=== PATIENT | male | born 1950 | race Caucasian/White ===

== ENCOUNTER 2024-04-03 12:15 | Day surgery (SDC) | payer MEDICARE, OTHER, SELFPAY ==
--- OUTSIDE RECORDS SUMMARY | 2024-04-03 12:18 | XMS_ITS | Continuity of Care Document ---
Author Organization [facility] Address [address] [place] [address]- Care Team Providers Care Valuation Manager Name Role Phone Jesusita MAGUIRE, Ralf Stauffer Primary Care Physician Encounter [facility] [place] Date(s): 11/26/23 - 12/03/23 [facility] [address] [place] [address], [place] [address] Attending Physician: Jeromy Valdes MD Referring Physician: Wil Alicea MD Allergies, Adverse Reactions, Alerts No Known Allergies Immunizations Given and Recorded Vaccine Date Status Refusal Reason SARS-CoV-2 (COVID-19) mRNA-1273 vaccine 05/21/21 R ecorded SARS-CoV-2 (COVID-19) mRNA-1273 vaccine 09/15/20 R ecorded SARS-CoV-2 (COVID-19) mRNA-1273 vaccine 08/18/20 R ecorded pneumococcal 23-valent vaccine 04/02/21 Recorded influenza virus vaccine, inactivated 04/02/21 Nuno rded Medications aspirin 81 mg oral delayed release tablet 81 mg, 1, tablet, By Mouth, Daily, Refills 0, Maintenance, 12/30/20 10:10:00 EDT, Partial fill uponpatient request if the prescription is for a schedule II opioid drug. Start Date: 12/30/20 Status: Ordered atorvastatin 20 mg oral tablet 1 tablet, By Mouth, Daily, # 90 tablet, 3 Refills, Maintenance, 02/12/23 15:03:00 EDT, [facility]/pharmacy#[id number], 178, cm, 02/12/23 14:39:00 EDT, Height Start Date: 02/12/23 Status: Ordered Centrum Silver Men's By Mouth, Daily, 0 Refills, Maintenance, 02/12/23 14:43:00 EDT, Partial fill upon patient request if the prescription is for a schedule II opioid drug. Start Date: 02/12/23 Status: Ordered Problem List Condition Confirmation Course Effective Dates Status H ealth Status Informant BPH (benign prostatic hyperplasia) Confirmed Active Hyperlipidemia Confirmed Active Skin cancer Confirmed Active Colon polyps Confirmed Active Skin nodule Confirmed Active Left-sided trigeminal neuralgia Confirmed Active Vital Signs Most recent to oldest [Reference Range]: 1 Height 178 cm (11/26/23 11:16 AM) Weight 89.9 kg (11/26/23 11:16 AM) Oxygen Saturation [94-100 %] 100 % (11/26/23 11:16 AM) Pulse Rate [55-90 bpm] 68 bpm (11/26/23 11:16 AM) Body Mass Index [18.5-24.99 kg/m2] 28.37 kg/m2 *H* (11/26/23 11:16 AM) Blood Pressure [90-138/55-84 mm Hg] 152/ 80mm Hg *H* (11/26/23 11:16 AM) Respiratory Rate [16-30 br/min] 18 br/mi n (11/26/23 11:16 AM) Blood pressure sites Arm, left (11/26/23 11:16 AM) Weight Obtained Via Standing scale (11/26/23 11:16 AM) Social History Social History Type Response Smoking Status Former smoker, quit more than 30 days ago entered on: 12/30/20 Sex Patient Care team information Care Team Personnel Name: Ralf Mc MD Position: S Physician - Primary Care Member Role: PCP Address: Address: [address] [place] [address], [address] [place] [address]- Care Team Related Persons Name: GIN SHORT Address: home [address] [place] [id number]
--- OUTSIDE RECORDS SUMMARY | 2024-04-03 12:18 | XMS_ITS | Continuity of Care Document ---
Author Organization [facility] Address [address] [place] [address]- Care Team Providers Care Special Ed Assistant Name Role Phone Ralf Mc MD Primary Care Physician Encounter [facility] [place] Date(s): 11/26/23 - 12/26/23 [facility] [address], [place] [address] Attending Physician: Gela Sher Admitting Physician: Admtr, [id number] Referring Physician: Admtr, [id number] Allergies, Adverse Reactions, Alerts No Known Allergies [...] tablet, 3 Refills, Maintenance, 02/12/23 15:03:00 EDT, [facility]/pharmacy#[id number], 178, cm, 02/12/23 14:39:00 EDT, Height Start [...] Confirmed Active Left-sided trigeminal neuralgia Confirmed Active Social History Social History Type Response Smoking Status Former smoker, quit more than 30 days ago entered on: 12/30/20 Sex Patient Care team information Care Team Personnel Name: Jesusita MAGUIRE, Ralf Stauffer Position: [facility] Physician - Primary Care Member Role: PCP Address: Address: [address] [place] [address], [address] [place] [address]- Care Team Related Persons Name: GIN SHORT Address: home [address] [place] [id number]
[2024-04-03 12:28] VITALS: BMI 26.5
[2024-04-03 12:47] VITALS: BP 140/82; PULSE 77; RESP 16; TEMP 36.8; O2SAT 97
[2024-04-03] MEDS: Lactated Ringers 1,000 ML 100 ML IVCONT (13:01)
--- NOTE | 2024-04-03 13:05 | HO.ANESPROP2 ---
Documented by User: Valery Salomon NP 03/31/24 09:32 HPI - Anesthesia Eval Consult details Narrative: 73yo M for Colonoscopy [facility] Past Medical History Medical History (Updated 03/30/24 @ 15:01 by Maria M Florez RN) Trigeminal neuralgia of left side of face Elevated cholesterol Surgical History Surgical History (Updated 03/30/24 @ 15:01 by Maria M Florez RN) Hx of cataract extraction H/O colonoscopy Social History Social History (Updated 03/30/24 @ 15:01 by Maria M Florez RN) Household Members: Spouse Patient Tobacco Use Status: Former Tobacco user Use of substances other than those prescribed or required for medical reasons: No Are you DNR?: No Advance Directives: No Advance Directives Information Provided: Yes Meds Allergies Allergy/AdvReac Type Severity Reaction Status Date / Time No Known Allergies Allergy Verified 03/30/24 14:59 Home Medications ?Medication ?Instructions ?Recorded ?Confirmed ?Last Taken ?Type aspirin 81 mg tablet,delayed 81 mg PO DAILY 03/30/24 03/30/24 Unknown History release atorvastatin 20 mg tablet 20 mg PO DAILY 03/30/24 03/30/24 Unknown History multivitamin 1 tab PO QAM 03/30/24 03/30/24 Unknown History Assessment and Plan Assessment Anesthesia Assessment: Chart Reviewed Documented by User: Danna Joyce DO 04/03/24 13:10 [facility] Past Medical History Medical History (Updated 03/30/24 @ 15:01 by Maria M Florez RN) Trigeminal neuralgia of left side of face Elevated cholesterol Family History Family history of problems with anesthesia: No Surgical History Surgical History (Updated 03/30/24 @ 15:01 by Maria M Florez RN) Hx of cataract extraction H/O colonoscopy History of Problems with Anesthesia: No Social History Social History (Updated 03/30/24 @ 15:01 by Maria M Florez RN) Household Members: Spouse Patient Tobacco Use Status: Former Tobacco user Use of substances other than those prescribed or required for medical reasons: No Are you DNR?: No Advance Directives: No Advance Directives Information Provided: Yes Meds Allergies Allergy/AdvReac Type Severity Reaction Status Date / Time No Known Allergies Allergy Verified 03/30/24 14:59 Home Medications ?Medication ?Instructions ?Recorded ?Confirmed ?Last Taken ?Type aspirin 81 mg tablet,delayed 81 mg PO DAILY 03/30/24 03/30/24 Unknown History release atorvastatin 20 mg tablet 20 mg PO DAILY 03/30/24 03/30/24 Unknown History multivitamin 1 tab PO QAM 03/30/24 03/30/24 Unknown History Exam Exam Date and Time: 04/03/24 1305 Height,Weight and Vital Signs: Height 5 ft 11 in Weight 86.183 kg Vital Signs Temperature 98.3 F 04/03/24 12:47 Pulse Rate 77 04/03/24 12:47 Respiratory Rate 16 04/03/24 12:47 Blood Pressure 140/82 H 04/03/24 12:47 Pulse Oximetry 97 04/03/24 12:47 Oxygen Delivery Method Room Air 04/03/24 12:47 Temperature 98.3 F 04/03/24 12:47 Pulse Rate 77 04/03/24 12:47 Respiratory Rate 16 04/03/24 12:47 Blood Pressure 140/82 H 04/03/24 12:47 Pulse Oximetry 97 04/03/24 12:47 Oxygen Delivery Method Room Air 04/03/24 12:47 Airway Mallampati Class: II TM Dist: >3cm Neck ROM: Full Loose/Missing/Broken Teeth: No (patient denies any loose or broken teeth) Heart: S1S2 Lungs: CTAB Assessment and Plan Final Anesthetic Review Family History of Problems with Anesthesia: No History of Problems with Anesthesia: No NPO: Yes ASA Class: II Final Preanesthetic Review: No Changes in Pt Med Stat, Meds/Allgs Chart Reviewed, Consent Obtained/Reviewed and Anes Risks/Benef Reviewed Patient Risk: Low Procedure Risk: Low Anesthetic Plan Anesthetic Plan: MAC: and Agree w/ Assess. and Plan Disposition: Standard PACU
[2024-04-03 14:18] VITALS: BP 98/56; PULSE 60; RESP 16; TEMP 36.2; O2SAT 95
--- NOTE | 2024-04-03 14:19 | PM.OP ---
Brief Operative Note Date of Service: 04/03/24 Pre-op diagnosis: Screening Post-op diagnosis: other (Colon polyps) Procedure: Colonoscopy to the cecum with cold snare polypectomy of cecal polyps and hot snare polypectomy of ascending colon polyp Surgeon: Matheus Arango MD Anesthesia: MAC Was an Director Dance used for this Procedure?: No Estimated blood loss (mL): 2.0 Pathology: other (A. Ascending colon polyp B. Cecal polyps) Condition: stable Disposition: PACU
[2024-04-03 14:33] VITALS: BP 116/80; PULSE 60; RESP 16; TEMP 36.2; O2SAT 96
--- NOTE | 2024-04-04 01:04 | OP_ITS ---
DATE OF SERVICE: 04/03/2024 SURGEON: Matheus Arango MD INDICATIONS: The patient presents for evaluation of personal history of tubular adenoma of the colon and need for colorectal cancer screening. Full consent has been obtained from him for this, including risks of bleeding and perforation. PREOPERATIVE DIAGNOSIS: POSTOPERATIVE DIAGNOSIS: PROCEDURE PERFORMED: Colonoscopy to the cecum with cold snare polypectomy and hot snare polypectomy. ESTIMATED BLOOD LOSS: COMPLICATIONS: ANESTHESIA: Monitored anesthesia care. ASSISTANTS: SPECIMENS: PREOPERATIVE DIAGNOSES: Colorectal cancer screening and personal history of tubular adenoma of the colon. POSTOPERATIVE DIAGNOSES: Colorectal cancer screening and personal history of tubular adenoma of the colon, colon polyps, diverticulosis, and internal hemorrhoids. DESCRIPTION OF PROCEDURE: The patient was placed in the left lateral decubitus position. The digital rectal exam revealed no abnormalities. The Olympus video pediatric colonoscope was entered into the rectum and advanced easily to the cecum. Once in the cecum, I did identify normal-appearing cecal pouch other than 2 approximately 3 or 4 mm polyps, which were adjacent to each other and were both removed by cold snare polypectomy. Specimens were recovered by suction. The polypectomy sites appeared clean, without any sign of residual polyp nor any significant bleeding. The remainder of the cecum appeared normal. There was transillumination of light deep in the right lower quadrant. The ileocecal valve appeared normal. The scope was then slowly withdrawn assessing all mucosal surfaces carefully. Preparation was excellent. In the proximal ascending colon was an approximately 8 mm polyp, which was removed by hot snare polypectomy. The polypectomy site appeared clean, without any sign of residual polyp nor bleeding. The specimen was recovered by suction. I did not visualize any other polyps, colitis, nor angiodysplasia. There was a mild amount of sigmoid diverticulosis. In the rectum, scope was retroflexed visualizing internal hemorrhoids, but no other pathology. The rectal mucosa appeared normal. The scope was straightened and withdrawn from the patient. He tolerated the procedure well and was returned to the recovery area in stable condition. IMPRESSION: 1. Colon polyps. 2. Diverticulosis. 3. Internal hemorrhoids. PLAN: The results of the pathology will be checked. He was advised not to use any aspirin and NSAIDs for 1 week. Given these relatively minimal findings and his age, I do not think he would need any further screening colonoscopies. He will otherwise see me on a p.r.n. basis. MD ADRIANA Trevizo/GERSON / [id number]
== END 2024-04-03 14:55 | disposition home or self-care (01) ==
PROVIDERS: PCP Internal Medicine; Visit Provider Internal Medicine
PROC: 0DJD8ZZ Inspection of Lower Intestinal Tract, Via Natural or Artificial Opening Endoscopic (ICD-10-PCS; CPT 45378; principal; 2024-04-03 13:30)
DX: Z12.11 Encounter for screening for malignant neoplasm of colon (principal); Z86.0101 Personal history of adenomatous and serrated colon polyps; D12.2 Benign neoplasm of ascending colon; K63.5 Polyp of colon; K57.30 Diverticulosis of large intestine without perforation or abscess without bleeding; K64.8 Other hemorrhoids; E78.00 Pure hypercholesterolemia, unspecified; G50.0 Trigeminal neuralgia; Z79.82 Long term (current) use of aspirin; Z79.899 Other long term (current) drug therapy
CPT/HCPCS: 45385; 88305; J2704